=== PATIENT | male | born 1985 | race American Indian/Alaskan Native ===

== ENCOUNTER 2020-12-20 09:13 | Emergency (ER) | payer SELFPAY ==
[2020-12-20] MEDS ORDERED: MORPHINE 4 MG/1 ML INJ IV ONE (09:50)
[2020-12-20] MEDS ORDERED: ONDANSETRON 4 MG/2 ML INJ IV ONE (09:50)
--- NOTE | 2020-12-20 10:56 | Cat Scan Report ---
CT abdomen pelvis wo con INDICATION: R flank pain, hx of kidney stones. COMPARISON: None TECHNIQUE: Abdominal and pelvic CT exam performed. All CT scans at this location are performed using CT dose reduction for ALARA by means of automated exposure control. FINDINGS: CT ABDOMEN and PELVIS: Lung Bases: No significant abnormality. Liver: No significant abnormality. Biliary: No significant abnormality. Spleen: No significant abnormality. Pancreas: No significant abnormality. Adrenals: No significant abnormality. Kidneys: 5 mm stone seen in the proximal right ureter. Moderate hydroureteronephrosis. 3 mm stone in the left lower pole. No left hydronephrosis. Lymphatics: No lymphadenopathy. Vasculature: No significant abnormality. Bowel: No significant abnormality. Pelvis: No significant abnormality. Osseous Structures: No aggressive osseous lesion. Additional Findings: None IMPRESSION: 1. 5 mm proximal right intraureteral stone with moderate hydroureteronephrosis. Signer Name: Ta Schumacher MD Signed: 12/20/2020 10:51 AM Workstation Name: [id number]
[2020-12-20 12:38] LABS: Basophils % (Auto) 0.3 % (0.0-1.8); Eosinophils # (Auto) 0.1 K/mm3 (0.0-0.4); Eosinophils % (Auto) 0.7 % (0.0-4.3); Hematocrit 46.9 % (35.5-45.6); Hemoglobin 16.4 gm/dl (11.8-15.2); Lymphocytes # (Auto) 1.8 K/mm3 (1.2-5.4); Lymphocytes % (Auto) 12.1 % (13.4-35.0); Mean Corpuscular HGB Conc 35 % (32-34); Mean Corpuscular Volume 90 fl (84-94); Monocytes # (Auto) 1.3 K/mm3 (0.0-0.8); Monocytes % (Auto) 8.5 % (0.0-7.3); Platelet Count 167 K/mm3 (140-440); Red Blood Count 5.24 M/mm3 (3.65-5.03); Red Cell Distribution Width 12.9 % (13.2-15.2)
[2020-12-20 12:50] LABS: Albumin 4.9 g/dL (3.9-5); Calcium 9.4 mg/dL (8.4-10.2)
[2020-12-20] MEDS ORDERED: SODIUM CHLORIDE 0.9% 1000 ML 1,000 ML IV ONE (13:21)
--- NOTE | 2020-12-20 14:01 | Emergency Department Report ---
ED General Adult HPI - General Chief complaint: Back Pain/Injury Stated complaint: LOWER BACK PAIN/HARD TO TALK Time Seen by Provider: 12/20/20 12:09 Source: patient Mode of arrival: Ambulatory Limitations: No Limitations - History of Present Illness Initial comments: 35-year-old male patient presents with complaints of sudden onset of right flank pain starting Saturday. He also reports some nausea and vomiting. Patient states his pain seems consistent with his previous pain that he had when he had a kidney stone. He admits to some dysuria, but denies any hematuria, fever/chills/sweats, stool changes, chest pain, shortness of breath, or cough. Patient states his pain was a 10 out of 10 in severity upon arrival, however after pain medication his pain is controlled. He denies any other prior medical history. -: Sudden Severity scale (0 -10): 10 - Related Data Previous Rx's Medication Instructions Recorded Last Taken Type Ciprofloxacin HCl 500 mg PO BID 7 Days #14 tablet 12/20/20 Unknown Rx HYDROcodone/APAP 10-325 [[place] 1 each PO Q6HR PRN #15 tablet 12/20/20 Unknown Rx 10/325] Promethazine HCl [Promethazine TAB] 12.5 - 25 mg PO Q8H PRN #20 tablet 12/20/20 Unknown Rx Tamsulosin [Flomax] 0.4 mg PO QDAY PRN #7 cap 12/20/20 Unknown Rx Allergies Allergy/AdvReac Type Severity Reaction Status Date / Time No Known Allergies Allergy Unverified 12/20/20 09:46 ED Review of Systems ROS: Stated complaint: LOWER BACK PAIN/HARD TO TALK Other details as noted in HPI Constitutional: denies: chills, diaphoresis, fever, malaise, weakness Respiratory: see HPI Cardiovascular: as per HPI Gastrointestinal: as per HPI Skin: denies: change in color Neurological: denies: weakness ED Past Medical Hx - Past Medical History Previous Medical History?: No - Surgical History Past Surgical History?: No - Medications Home Medications: Home Medications Medication Instructions Recorded Confirmed Last Taken Type Ciprofloxacin HCl 500 mg PO BID 7 Days #14 tablet 12/20/20 Unknown Rx HYDROcodone/APAP 10-325 [[place] 1 each PO Q6HR PRN #15 tablet 12/20/20 Unknown Rx 10/325] Promethazine HCl [Promethazine TAB] 12.5 - 25 mg PO Q8H PRN #20 tablet 12/20/20 Unknown Rx Tamsulosin [Flomax] 0.4 mg PO QDAY PRN #7 cap 12/20/20 Unknown Rx ED Physical Exam - General Limitations: No Limitations General appearance: alert, in no apparent distress - Head Head exam: Present: atraumatic, normocephalic - Eye Eye exam: Present: normal appearance - Respiratory Respiratory exam: Present: normal lung sounds bilaterally. Absent: respiratory distress - Cardiovascular Cardiovascular Exam: Present: regular rate, normal rhythm - GI/Abdominal GI/Abdominal exam: Present: soft, normal bowel sounds. Absent: distended, tenderness, guarding, rebound, rigid - Back Exam Back exam: Present: CVA tenderness (R). Absent: CVA tenderness (L) - Neurological Exam Neurological exam: Present: alert, oriented X3, normal gait - Psychiatric Psychiatric exam: Present: normal affect, normal mood - Skin Skin exam: Present: warm, dry, intact, normal color. Absent: rash, cyanosis, diaphoretic, ecchymosis ED Course Vital Signs 12/20/20 12/20/20 09:47 14:56 Temperature 98.3 F 97.9 F Pulse Rate 68 74 Respiratory 16 18 Rate Blood Pressure 143/82 127/77 [Right] O2 Sat by Pulse 98 100 Oximetry ED Medical Decision Making - Lab Data Result diagrams: 12/20/20 11:27 12/20/20 11:27 Lab Results 12/20/20 12/20/20 Range/Units 11:27 11:27 WBC 15.2 H (4.5-11.0) K/mm3 RBC 5.24 H (3.65-5.03) M/mm3 Hgb 16.4 H (11.8-15.2) gm/dl Hct 46.9 H (35.5-45.6) % MCV 90 (84-94) fl MCH 31 (28-32) pg MCHC 35 H (32-34) % RDW 12.9 L (13.2-15.2) % Plt Count 167 (140-440) K/mm3 Lymph % (Auto) 12.1 L (13.4-35.0) % [place]cock % (Auto) 8.5 H (0.0-7.3) % Eos % (Auto) 0.7 (0.0-4.3) % Baso % (Auto) 0.3 (0.0-1.8) % Lymph # (Auto) 1.8 (1.2-5.4) K/mm3 [place]cock # (Auto) 1.3 H (0.0-0.8) K/mm3 Eos # (Auto) 0.1 (0.0-0.4) K/mm3 Baso # (Auto) 0.0 (0.0-0.1) K/mm3 Seg Neutrophils % 78.4 H (40.0-70.0) % Seg Neutrophils # 11.9 H (1.8-7.7) K/mm3 Sodium 133 L (137-145) mmol/L Potassium 4.3 (3.6-5.0) mmol/L Chloride 95.2 L (98-107) mmol/L Carbon Dioxide 24 (22-30) mmol/L Anion Gap 18 mmol/L BUN 26 H (9-20) mg/dL Creatinine 1.7 H (0.8-1.3) mg/dL Estimated GFR 46 ml/min BUN/Creatinine Ratio 15 % Glucose 96 (75-100) mg/dL Calcium 9.4 (8.4-10.2) mg/dL Total Bilirubin 1.00 (0.1-1.2) mg/dL AST 21 (5-40) units/L ALT 16 (7-56) units/L Alkaline Phosphatase 118 (35-129) units/L Total Protein 7.7 (6.3-8.2) g/dL Albumin 4.9 (3.9-5) g/dL Albumin/Globulin Ratio 1.8 % - Radiology Data Radiology results: report reviewed CT abdomen pelvis wo con INDICATION: R flank pain, hx of kidney stones. COMPARISON: None TECHNIQUE: Abdominal and pelvic CT exam performed. All CT scans at this location are performed using CT dose reduction for ALARA by means of automated exposure control. FINDINGS: CT ABDOMEN and PELVIS: Lung Bases: No significant abnormality. Liver: No significant abnormality. Biliary: No significant abnormality. Spleen: No significant abnormality. Pancreas: No significant abnormality. Adrenals: No significant abnormality. Kidneys: 5 mm stone seen in the proximal right ureter. Moderate hydroureteronephrosis. 3 mm stone in the left lower pole. No left hydronephrosis. Lymphatics: No lymphadenopathy. Vasculature: No significant abnormality. Bowel: No significant abnormality. Pelvis: No significant abnormality. Osseous Structures: No aggressive osseous lesion. Additional Findings: None IMPRESSION: 1. 5 mm proximal right intraureteral stone with moderate hydroureteronephrosis. - Medical Decision Making 35-year-old male patient presents with complaints of sudden onset of right flank pain starting Saturday. He also reports some nausea and vomiting. Patient states his pain seems consistent with his previous pain that he had when he had a kidney stone. He admits to some dysuria, but denies any hematuria, fever/chills/sweats, stool changes, chest pain, shortness of breath, or cough. Patient states his pain was a 10 out of 10 in severity upon arrival, however after pain medication his pain is controlled. He denies any other prior medical history. CBC shows white count of 15.2. Creatinine mildly elevated at 1.7. Patient denies prior history of kidney disease. Anion gap = 18. CT abdomen shows 5 mm right proximal ureter stone with mild hydronephrosis. Patient's pain remains controlled with morphine. No vomiting observed here in ED. Discussed patient in detail with Dr. Arteaga-states given patient's pain is controlled, patient is able to be discharged home and follow-up with urology outpatient; elevated creatinine likely due to dehydration-patient given 1 L normal saline. Patient's vitals remain normal, he is well-appearing, he is stable for discharge home. Discussed signs and symptoms that should prompt immediate return to the emergency department in detail patient verbalizes understanding. Critical care attestation.: If time is entered above; I have spent that time in minutes in the direct care of this critically ill patient, excluding procedure time. ED Disposition Clinical Impression: Right kidney stone Disposition: DC-01 TO HOME OR SELFCARE Is pt being admited?: No Condition: Stable Instructions: Kidney Stones Prescriptions: Ciprofloxacin HCl 500 mg PO BID 7 Days #14 tablet Tamsulosin [Flomax] 0.4 mg PO QDAY PRN #7 cap PRN Reason: kidney stone passage HYDROcodone/APAP 10-325 [[place] 10/325] 1 each PO Q6HR PRN #15 tablet PRN Reason: Pain Promethazine HCl [Promethazine TAB] 12.5 - 25 mg PO Q8H PRN #20 tablet PRN Reason: Nausea Referrals: KASIA DUARTE MD [Staff Physician] - 3-5 Days
[2020-12-20 14:35] LABS: Bilirubin,Urine NEG (Negative); Blood,Urine LG (Negative); Color,Urine Yellow (Yellow); Urobilinogen,Urine < 2.0 mg/dL (<2.0)
[2020-12-20 14:58] VITALS: BP 127/77
== END 2020-12-20 15:16 | disposition home or self-care (01) ==
LOC: ED 09:13
DX: N20.0 Calculus of kidney (principal); Z79.899 Other long term (current) drug therapy
CPT/HCPCS: 36415; 74176; 80053; 81001; 85025; 87086; 96361; 96374; 96375; 99284; J2270; J2405; J7030